=== PATIENT | female | born 1985 | race Two or more races ===

== ENCOUNTER 2017-04-30 16:59 | Emergency (ER) | payer MEDICAID ==
[~2017-04-30] VITALS: Ht 160 cm; Wt 61.0 kg
[2017-04-30 17:10] VITALS: BP 130/70
== END 2017-04-30 18:19 | disposition left against medical advice (07) ==
LOC: ER 16:59
DX: Z53.21 Procedure and treatment not carried out due to patient leaving prior to being seen by health care provider (principal)